=== PATIENT | female | born 1945 | race Caucasian/White ===

== ENCOUNTER 2025-01-08 11:04 | Outpatient (CLI) | payer MEDICARE ==
[~2025-01-08 11:04] MED LIST: ALPR1TAB7 PO; APIX5TAB3 PO; ASCO500C18 PO; CHOL400T14 PO; CLOB15CR4 TOP; CYAN-104 PO; ESTR1TAB19 PO; FLEC50TA PO; HYDR-4353 PO; PANT40TA54 PO
--- NOTE | 2025-01-08 13:11 | RADIOLOGY REPORT ---
EXAM: MR MRI LOWER EXTREMITY LEFT INDICATION: PAIN IN LEFT HIP,TROCHANTERIC BURSITIS, LEFT HIP TECHNIQUE: Multiplanar and multisequence MR imaging of the left hip was performed in the absence of g adolinium contrast material. COMPARISON: None FINDINGS: [BONE]: Sacroiliac joints and pubic symphysis intervals are normal. Bone marrow signal is normal. No acute fracture, osseous contusion, avascular necrosis, or aggressive osseous lesion. [MUSCLES]: Normal in bulk and morphology. [JOINT SPACE]: No joint effusion. [BURSAE]: Trace suspected left greater trochanteric bursitis. [LABRUM/CARTILAGE]: Diffuse cartilage thinning of the superior aspect of the left hip joint. Small a mount of subchondral edema of the femoral head. [LIGAMENTS]: Intact ligamentum teres, acetabular transverse ligament, and joint capsular ligaments. [TENDONS]: Intact rectus femoris, hamstring, and gluteal tendons. [OTHER]: None IMPRESSION: 1. Diffuse cartilage thinning of the superior aspect of the left hip joint. Small amount of subchond ral edema of the femoral head. 2. Small amount of subchondral edema of the femoral head.
== END 2025-01-08 23:59 | disposition home or self-care (01) ==
LOC: MRI 11:04
PROVIDERS: ATTEND Nurse Practitioner
DX: M25.552 Pain in left hip (principal); M62.838 Other muscle spasm; M43.12 Spondylolisthesis, cervical region; G89.4 Chronic pain syndrome; M70.62 Trochanteric bursitis, left hip; M43.26 Fusion of spine, lumbar region; M47.898 Other spondylosis, sacral and sacrococcygeal region; M47.897 Other spondylosis, lumbosacral region; M70.61 Trochanteric bursitis, right hip; M16.11 Unilateral primary osteoarthritis, right hip; M25.551 Pain in right hip; M16.12 Unilateral primary osteoarthritis, left hip
CPT/HCPCS: 73721